=== PATIENT | male | born 1935 | race Caucasian/White ===

== ENCOUNTER 2021-10-28 17:53 | Inpatient (IN) ==
[2021-10-28 19:09] LABS: Basophils # (auto) 0.02 K/uL (0-0.2); Basophils % (auto) 0.2 %; Eosinophils # (auto) 0.22 K/uL (0-0.50); Eosinophils % (auto) 2.2 %; Hematocrit (blood only) 40.3 % (40.1-51.0); Hemoglobin 14.4 g/dl (14.0-18.0); Immature Granulocytes # (auto) 0.04 K/uL (0.00-0.02); Immature Granulocytes % (auto) 0.4 %; Lymphocytes # (auto) 1.32 K/uL (1.2-3.4); Lymphocytes % (auto) 13.3 %; Mean Corpuscular Hemoglobin 32.1 pg (25.0-34.0); Mean Corpuscular Hgb Conc 35.7 g/dL (32.0-36.0); Mean Corpuscular Volume 89.8 fL (80.0-100.0); Monocytes % (auto) 12.1 %; Neutrophils # (auto) 7.12 K/uL (1.4-6.5); Neutrophils % (auto) 71.8 %; Platelet Count 185 K/uL (130-400); RDW Coefficient of Variation 12.2 % (11.5-14.5); RDW Standard Deviation 40.4 fL (36.4-46.3); Red Blood Count 4.49 M/uL (4.63-6.08); White Blood Count 9.92 K/ul (4.8-10.8)
[2021-10-28 19:25] LABS: Alanine Aminotransferase 20 U/L (7-52); Albumin Globulin Ratio 1.8 (0.9-2); Albumin Level 4.4 gm/dl (3.4-5.0); Alkaline Phosphatase 58 U/L (34-104); Anion Gap 8 (3-11); Aspartate Aminotransferase 28 U/L (13-39); BUN Creatinine Ratio 11.9 (10-20); Bilirubin,Total 1.1 mg/dl (0.2-1.0); Blood Urea Nitrogen 20 mg/dl (6-23); Calcium 10.1 mg/dl (8.5-10.1); Carbon Dioxide 26 mmol/L (21-32); Chloride 82 mmol/L (98-107); Est GFR (African American) 42.3 ml/min; Est GFR (Non-African American) 36.5 ml/min; Globulin 2.5 gm/dl (2.5-4.0); Glucose 114 mg/dl (70-99(Fasting)); Potassium 4.5 mmol/L (3.5-5.1); Sodium 116 mmol/L (136-145); Total Protein 6.9 gm/dl (6.0-8.3)
--- NOTE | 2021-10-28 20:10 | Emergency Department Note ---
History of Present Illness General Chief complaint: Abnormal Labs/Diagnostic Testing Stated complaint: DR MITTAL FOR LOW SODIUM Time Seen by Provider: 10/28/21 19:37 History of Present Illness 86-year-old male presents to the ED with a chief complaint of generalized weakness. He states that he has been this way for about a year. The daughter, who presents with the patient, states that he seems to have become progressively weak over the past couple of weeks or so. The patient has a history of constipation and drinks about 8 glasses of water a day. Other than his weakness, he denies any other specific complaints. He was recently started on ranolazine by his yarn man. He has some routine blood work done yesterday that showed hyponatremia. For this reason he was sent to the ED for admission. Home Medications Medication Instructions Recorded Confirmed Type ascorbic acid (vitamin C) 100 mg 100 mg PO DAILY 10/05/21 10/13/21 History tablet aspirin 81 mg tablet,delayed 81 mg PO DAILY 10/05/21 10/13/21 History release atorvastatin 40 mg tablet 40 mg PO DAILY 10/05/21 10/13/21 History hydrochlorothiazide 12.5 mg tablet 12.5 mg PO DAILY 10/05/21 10/13/21 History insulin NPH isoph U-100 human 100 20 unit subcut BID 10/05/21 10/13/21 History unit/mL (3 mL) subcutaneous pen (Novolin N Flexpen) lisinopril 20 mg tablet 20 mg PO BID 10/05/21 10/13/21 History metformin 500 mg tablet 500 mg PO QPM 10/05/21 10/13/21 History multivitamin 1 tab PO DAILY 10/05/21 10/13/21 History nitroglycerin 0.4 mg sublingual 0.4 mg sublingual Q5M PRN 10/05/21 10/13/21 History tablet cranberry fruit PO DAILY 10/13/21 10/13/21 History isosorbide mononitrate 60 mg 30 mg PO DAILY 10/13/21 10/13/21 History tablet,extended release 24 hr metformin 500 mg tablet 500 mg PO QAM 10/13/21 10/13/21 History omega-3 fatty acids PO BID 10/13/21 10/13/21 History ranolazine 500 mg tablet,extended 500 mg PO BID #60 tabs 10/13/21 10/13/21 Rx release,12 hr Past Med/Surg History Medical History Myocardial infarct Surgical History Hx of CABG with left heart cath Family History Father Heart disease Social History Smoking Status: Never smoker Hx Alcohol Use: No Hx Substance Use: No Preferred Language: Macedonian Feels Safe at Home: Yes Review of Systems A total of 10 systems reviewed and were otherwise negative Physical Exam Vital Signs Vital Signs - 24 hr 10/28/21 18:26 Temperature 36 C L Temperature Source Oral Pulse Rate 78 Respiratory Rate 21 Respiratory Effort / Characteristics Non-Labored Respiratory Depth Normal Blood Pressure 167/96 H Blood Pressure Mean 119 Pulse Oximetry 95 Oxygen Delivery Method Room Air Sepsis Recent Fever Within 48 Hours No Sepsis New/Unexplained Change in Mental Status No Sepsis Action Taken by Nursing No Action Required CONSTITUTIONAL/VITAL SIGNS: Reviewed / noted above. GENERAL: Non-toxic in appearance. Generalized weakness. INTEGUMENTARY: Warm, dry, and [place]. HEAD: Normocephalic. EYES: without scleral icterus or trauma. ENT/OROPHARYNX: clear and moist. LYMPHADENOPATHY/NECK: Is supple without lymphadenopathy or meningismus. RESPIRATORY: Clear to auscultation bilaterally. No increased work of breathing. CARDIOVASCULAR: Regular rate and rhythm. GI/ABDOMEN: Soft and nontender. No organomegaly or pulsatile mass. EXTREMITIES: Warm and well perfused. BACK: No CVA tenderness. NEUROLOGICAL: Intact without focal deficits. PSYCHIATRIC: normal affect. MUSCULOSKELETAL: Normally developed with good muscle tone. TRIAGE NURSING DOCUMENTATION REVIEWED. Medical Decision Making Differential Diagnosis Differential includes acute coronary syndrome, myocardial infarction, CVA, TIA, anemia, infection, pneumonia, UTI, pyelonephritis, poor nutrition, dehydration, electrolyte disturbance,hypoglycemia. Medical Records Attestation: I reviewed the patient's medical records. Home Medications Current Medication List: was personally reviewed by me Laboratory Data Attestation: I reviewed the patient's lab results. Result diagrams: 10/28/21 18:52 10/28/21 18:52 Lab Results 10/28/21 10/28/2122 Range/Units 18:52 18:52 18:52 WBC 9.92 (4.8-10.8) K/ul RBC 4.49 L (4.63-6.08) M/uL Hgb 14.4 (14.0-18.0) g/dl Hct 40.3 (40.1-51.0) % MCV 89.8 (80.0-100.0) fL MCH 32.1 (25.0-34.0) pg MCHC 35.7 (32.0-36.0) g/dL RDW Std Deviation 40.4 (36.4-46.3) fL RDW Coeff of Gail 12.2 (11.5-14.5) % Plt Count 185 (130-400) K/uL MPV 10.0 (9.4-12.4) fL Immature Gran % (Auto) 0.4 % Neut % (Auto) 71.8 % Lymph % (Auto) 13.3 % [place] % (Auto) 12.1 % Eos % (Auto) 2.2 % Baso % (Auto) 0.2 % Neut # (Auto) 7.12 H (1.4-6.5) K/uL Lymph # (Auto) 1.32 (1.2-3.4) K/uL [place] # (Auto) 1.20 H (0.24-0.82) K/uL Eos # (Auto) 0.22 (0-0.50) K/uL Baso # (Auto) 0.02 (0-0.2) K/uL Immature Gran # (Auto) 0.04 H (0.00-0.02) K/uL Sodium 116 L* (136-145) mmol/L Potassium 4.5 (3.5-5.1) mmol/L Chloride 82 L (98-107) mmol/L Carbon Dioxide 26 (21-32) mmol/L Anion Gap 8 (3-11) BUN 20 (6-23) mg/dl Creatinine 1.68 H (0.6-1.4) mg/dl Est Cr Clr Drug Dosing Not Reportable Est GFR ( Amer) 42.3 ml/min Est GFR (Non-Af Amer) 36.5 ml/min BUN/Creatinine Ratio 11.9 (10-20) Glucose 114 H (70-99(Fasting)) mg/dl Osmolality (280-300) mOsm/kg Calcium 10.1 (8.5-10.1) mg/dl Total Bilirubin 1.1 H (0.2-1.0) mg/dl AST 28 (13-39) U/L ALT 20 (7-52) U/L Alkaline Phosphatase 58 (34-104) U/L Total Protein 6.9 (6.0-8.3) gm/dl Albumin 4.4 (3.4-5.0) gm/dl Globulin 2.5 (2.5-4.0) gm/dl Albumin/Globulin Ratio 1.8 (0.9-2) TSH 1.154 (0.300-4.500) uIu/ml 10/28/21 Range/Units 18:52 WBC (4.8-10.8) K/ul RBC (4.63-6.08) M/uL Hgb (14.0-18.0) g/dl Hct (40.1-51.0) % MCV (80.0-100.0) fL MCH (25.0-34.0) pg MCHC (32.0-36.0) g/dL RDW Std Deviation (36.4-46.3) fL RDW Coeff of Gail (11.5-14.5) % Plt Count (130-400) K/uL MPV (9.4-12.4) fL Immature Gran % (Auto) % Neut % (Auto) % Lymph % (Auto) % [place]ink[place] % (Auto) % Eos % (Auto) % Baso % (Auto) % Neut # (Auto) (1.4-6.5) K/uL Lymph # (Auto) (1.2-3.4) K/uL [place]ink[place] # (Auto) (0.24-0.82) K/uL Eos # (Auto) (0-0.50) K/uL Baso # (Auto) (0-0.2) K/uL Immature Gran # (Auto) (0.00-0.02) K/uL Sodium (136-145) mmol/L Potassium (3.5-5.1) mmol/L Chloride (98-107) mmol/L Carbon Dioxide (21-32) mmol/L Anion Gap (3-11) BUN (6-23) mg/dl Creatinine (0.6-1.4) mg/dl Est Cr Clr Drug Dosing Est GFR ( Amer) ml/min Est GFR (Non-Af Amer) ml/min BUN/Creatinine Ratio (10-20) Glucose (70-99(Fasting)) mg/dl Osmolality 251 L (280-300) mOsm/kg Calcium (8.5-10.1) mg/dl Total Bilirubin (0.2-1.0) mg/dl AST (13-39) U/L ALT (7-52) U/L Alkaline Phosphatase (34-104) U/L Total Protein (6.0-8.3) gm/dl Albumin (3.4-5.0) gm/dl Globulin (2.5-4.0) gm/dl Albumin/Globulin Ratio (0.9-2) TSH (0.300-4.500) uIu/ml Imaging Data My Impression: Chest x-ray: Per my interpretation shows no acute process. No pneumonia or pneumothorax. ECG Data Attestation: I personally reviewed and interpreted this ECG as follows: Additional Comments: Twelve-lead EKG: Per my interpretation shows a sinus rhythm at a rate of 72 with a first-degree AV block. PVC. Normal QTC. No ST elevation MDM Narrative 86-year-old male presents with generalized weakness. Laboratory studies yesterday showed hyponatremia. Sodium today is 116. Chloride is also low at 82. His BUN is 20 with a creatinine of 1.68. This is near baseline for the patient. Clinically the patient does not appear to be dehydrated. He denies any edema or swelling in his legs. The patient did have blood work about 2 months ago that showed a sodium of 137 at that time.. Chest x-ray did not show acute process. The patient will be seen by the hospitalist for further evaluation and care Impression & Plan Acute hyponatremia Discharge Plan Visit Data Chief Complaint: Abnormal Labs/Diagnostic Testing Stated Complaint: DR MITTAL FOR LOW SODIUM ED Provider: Jaret Lind Discharge Problem: Acute hyponatremia Patient Disposition: Being Evaluated by Hospitalist Forms Stand Alone Forms: My [facility] Prescriptions Prescriptions: No Action omega-3 fatty acids PO BID cranberry fruit PO DAILY ranolazine 500 mg tablet extended release 12 hr 500 mg PO BID Qty: 60 5RF atorvastatin 40 mg tablet 40 mg PO DAILY Novolin N Flexpen 100 unit/mL (3 mL) insulin pen 20 unit subcut BID lisinopril 20 mg tablet 20 mg PO BID aspirin 81 mg tablet,delayed release (DR/EC) 81 mg PO DAILY metformin 500 mg tablet 500 mg PO QPM multivitamin Tablet 1 tab PO DAILY ascorbic acid (vitamin C) 100 mg tablet 100 mg PO DAILY hydrochlorothiazide 12.5 mg tablet 12.5 mg PO DAILY nitroglycerin 0.4 mg tablet, sublingual 0.4 mg sublingual Q5M PRN Rx Instructions: do not exceed 3 doses per episode isosorbide mononitrate 60 mg tablet extended release 24 hr 30 mg PO DAILY metformin 500 mg tablet 500 mg PO QAM Referrals Referrals: Aramis Medel D.O. [Primary Care Provider] -
--- NOTE | 2021-10-28 20:39 | History & Physical Report ---
Date of Service October 28, 2021 Assessment & Plan (1) Acute hyponatremia: Plan: Acute severe euvolemic hypotonic hyponatremia - 86yo male with history of CAD, HTN, HLP and DM presenting with two weeks of progressive weakness, fatigue and functional decline. Some cognitive impairment and imbalance noted by daughter. No seizure. Found to be acutely hyponatremic with Ty=615. Last laboratory value on 09/02/21 with Ur=276. Patient appears euvolemic on exam. Serum osmolality is low at 251. Urine osmolality and urine Na pending. Patient is on HCTZ which can be contributing to hyponatremia. He was recently started on Ranolazine which does not contribute to hyponatremia. ?SIADH -Admit to PCU -Awaiting urine osmolality and Na -Hold HCTZ -Administer 3% NSS x 50mL bolus x 1. Rebolus if needed -Monitor Na q 4 hours - goal to increase serum Na by 4-6 mEq/L daily -Free H2O restriction 1200mL/day -PT/OT evaluation - suspect improved function after electrolyte derangement is correctef (2) CAD (coronary artery disease): Plan: Patient with CAD s/p CABG x 4v in 2000. No chest pain presently. He follows with Cardiology. Recently started on Ranexa 500mg po BID for persistent exertional symptoms - plan to discontinue Isosorbide in the future if tolerated. -Continue ASA 81mg po daily -Continue Atorvastatin 40mg po daily -Continue Isosorbide mononitrate -Continue Lisinopril -Continue Ranolazine (3) Type 2 diabetes mellitus: Plan: Chronic. Blood sugar well controlled now at 114. Patient does report he has occasional low blood sugars. He is on Metformin as well as Novolog -Check HgbA1C in AM -ISS -Lantus 5u BID -Goal blood sugar 100 - 140 (4) Hypertension: Plan: Blood pressure mildly elevated in the ER at 150/85 -Hold HCTZ -Continue Lisinopril, Isosorbide (5) Hypercholesterolemia: Plan: F/E/N - 3% saline bolus as needed, monitor Na q 4 hours, check Mg and PO4 x 1 and replete if needed, AHA/CC diet as tolerated Ppx - Lovenox Code - DNR/DNI Dipso - Admit to PCU POC - Gee - Asya - [phone] History of Present Illness Chief Complaint: weakness Primary Care Provider: Aramis Medel Jun Alvarez is a pleasant 86yo male with history of HTN, HLP, DM and CAD s/p CABG x 4v (2000 in [place]. HERNANDEZ to LAD, SVG to PDA, SVG to OM1 and SVG to diagonal). Patient has been evaluated for ongoing fatigue as well as exertional dyspnea. He was last seen by Cardiology with these complaints on 10/13/21 and was started on Ranexa 500mg po BID as anti-anginal. Overall he has had progressive generalized weakness and fatigue over the last few months. However, his symptoms have rapidly progressed over the last 2 wee ks. His daughter has also noted some cognitive slowing as well as imbalance. No seizures. Patient had routine bloodwork performed today in preparation for an appointment with his PCP. He was found to be severely hyponatremic with Yg=680. He was notified of his results and told to come to the ER for additional workup and treatment. Patient is with his daughter. Overall states he is doing well. He takes his medication as prescribed. He has had some constipation lately so has been taking Metamucil and MOM as well as having a Fleets enema. He reports that he has poor appetite overall. He drinks 6-8 glasses of water daily. Takes HCTZ as well. No additional complaints at this time. Allergies Allergy/AdvReac Type Severity Reaction Status Date / Time No Known Allergies Allergy Unverified 10/28/21 22:46 Home Medications Medication Instructions Recorded Confirmed Type ascorbic acid (vitamin C) 100 mg 100 mg PO DAILY 10/05/21 10/28/21 History tablet aspirin 81 mg tablet,delayed 81 mg PO DAILY 10/05/21 10/28/21 History release atorvastatin 40 mg tablet 40 mg PO DAILY 10/05/21 10/28/21 History hydrochlorothiazide 12.5 mg tablet 12.5 mg PO DAILY 10/05/21 10/28/21 History insulin NPH isoph U-100 human 100 20 unit subcut BID 10/05/21 10/28/21 History unit/mL (3 mL) subcutaneous pen (Novolin N Flexpen) lisinopril 20 mg tablet 20 mg PO BID 10/05/21 10/28/21 History multivitamin 1 tab PO DAILY 10/05/21 10/28/21 History nitroglycerin 0.4 mg sublingual 0.4 mg sublingual Q5M PRN Chest 10/05/21 10/28/21 History tablet Pain isosorbide mononitrate 60 mg 30 mg PO DAILY 10/13/21 10/28/21 History tablet,extended release 24 hr ranolazine 500 mg tablet,extended 500 mg PO BID #60 tabs 10/13/21 10/28/21 Rx release,12 hr Juice Plus Tabs 6 tab PO QAM 10/28/21 10/28/21 History cholecalciferol (vitamin D3) 125 125 mcg PO DAILY 10/28/21 10/28/21 History mcg (5,000 unit) tablet (Vitamin D3) cranberry 400 mg capsule 400 mg PO DAILY 10/28/21 10/28/21 History d-mannose 500 mg capsule 1,000 mg PO DAILY 10/28/21 10/28/21 History lactobacillus combination no.4 3 0 mmu cells PO DAILY 10/28/21 10/28/21 History billion cell capsule (Probiotic) metformin 1,000 mg tablet 500 mg PO BID 10/28/21 10/28/21 History omega-3 fatty acids 1,000 mg 2,000 mg PO DAILY 10/28/21 10/28/21 History capsule Past Med/Surg History Medical History (Updated 10/28/21 @ 23:38 by Silvia Kirby DO) Hypercholesterolemia Hypertension Myocardial infarct Type 2 diabetes mellitus Surgical History Hx of CABG with left heart cath Family History Father Heart disease Social History Smoking Status: Never smoker Hx Alcohol Use: No Hx Substance Use: No Preferred Language: Sinhala Feels Safe at Home: Yes Review of Systems Review of Systems: All systems reviewed & are unremarkable except as noted in HPI & below Physical Exam Physical Exam: General: patient resting comfortably, NAD, non-toxic in appearance, AA&O x 4 Skin: warm, dry, intact, no rashes or lesions HEENT: NC/AT, PERRL, EOMI, anicteric sclera, conjunctiva without injection, external ear normal to inspection and nontender, nares patent, moist mucus membranes, dentition intact, no oropharyngeal lesions, neck supple, trachea midline, no LAD, no thyromegaly, no JVD Heart: +S1/S2, regular, no m/r/g Lungs: equal air entry bilaterally, no rales/rhonchi/wheezes Abd: +BS, soft, NT/ND, no masses/organomegaly/ascites Ext: warm, 2+ pulses in UE/LE bilaterally, no clubbing/cyanosis or edema Neuro: nonfocal, patient AA&O x 4, speech intact, no facial droop, moving all extremities on command with equal strength 5/5 Results & Data Results & Data ([facility]) Vital Signs (Past 12 Hours) Vital Signs Temp Pulse Resp BP Pulse Ox O2 Del Method 10/28/21 18:26 36 C L 78 21 167/96 H 95 Room Air Laboratory Results Laboratory Results WBC 9.92 K/ul (4.8-10.8) 10/28/21 18:52 RBC 4.49 M/uL (4.63-6.08) L 10/28/21 18:52 Hgb 14.4 g/dl (14.0-18.0) 10/28/21 18:52 Hct 40.3 % (40.1-51.0) 10/28/21 18:52 MCV 89.8 fL (80.0-100.0) 10/28/21 18:52 MCH 32.1 pg (25.0-34.0) 10/28/21 18:52 MCHC 35.7 g/dL (32.0-36.0) 10/28/21 18:52 RDW Std Deviation 40.4 fL (36.4-46.3) 10/28/21 18:52 RDW Coeff of Gail 12.2 % (11.5-14.5) 10/28/21 18:52 Plt Count 185 K/uL (130-400) 10/28/21 18:52 MPV 10.0 fL (9.4-12.4) 10/28/21 18:52 Immature Gran % (Auto) 0.4 % 10/28/21 18:52 Neut % (Auto) 71.8 % 10/28/21 18:52 Lymph % (Auto) 13.3 % 10/28/21 18:52 [place] % (Auto) 12.1 % 10/28/21 18:52 Eos % (Auto) 2.2 % 10/28/21 18:52 Baso % (Auto) 0.2 % 10/28/21 18:52 Neut # (Auto) 7.12 K/uL (1.4-6.5) H 10/28/21 18:52 Lymph # (Auto) 1.32 K/uL (1.2-3.4) 10/28/21 18:52 [place] # (Auto) 1.20 K/uL (0.24-0.82) H 10/28/21 18:52 Eos # (Auto) 0.22 K/uL (0-0.50) 10/28/21 18:52 Baso # (Auto) 0.02 K/uL (0-0.2) 10/28/21 18:52 Immature Gran # (Auto) 0.04 K/uL (0.00-0.02) H 10/28/21 18:52 Sodium 116 mmol/L (136-145) L* 10/28/21 18:52 Potassium 4.5 mmol/L (3.5-5.1) 10/28/21 18:52 Chloride 82 mmol/L (98-107) L 10/28/21 18:52 Carbon Dioxide 26 mmol/L (21-32) 10/28/21 18:52 Anion Gap 8 (3-11) 10/28/21 18:52 BUN 20 mg/dl (6-23) 10/28/21 18:52 Creatinine 1.68 mg/dl (0.6-1.4) H 10/28/21 18:52 Est Cr Clr Drug Dosing Not Reportable 10/28/21 18:52 Est GFR ( Amer) 42.3 ml/min 10/28/21 18:52 Est GFR (Non-Af Amer) 36.5 ml/min 10/28/21 18:52 BUN/Creatinine Ratio 11.9 (10-20) 10/28/21 18:52 Glucose 114 mg/dl (70-99(Fasting)) H 10/28/21 18:52 Osmolality 251 mOsm/kg (280-300) L 10/28/21 18:52 Calcium 10.1 mg/dl (8.5-10.1) 10/28/21 18:52 Total Bilirubin 1.1 mg/dl (0.2-1.0) H 10/28/21 18:52 AST 28 U/L (13-39) 10/28/21 18:52 ALT 20 U/L (7-52) 10/28/21 18:52 Alkaline Phosphatase 58 U/L (34-104) 10/28/21 18:52 Total Protein 6.9 gm/dl (6.0-8.3) 10/28/21 18:52 Albumin 4.4 gm/dl (3.4-5.0) 10/28/21 18:52 Globulin 2.5 gm/dl (2.5-4.0) 10/28/21 18:52 Albumin/Globulin Ratio 1.8 (0.9-2) 10/28/21 18:52 TSH 1.154 uIu/ml (0.300-4.500) 10/28/21 18:52 Urine Color Yellow 10/28/21 21:37 Urine Appearance Clear (Clear) 10/28/21 21:37 Urine pH 6.0 (4.5-7.5) 10/28/21 21:37 Ur Specific [place] 1.009 (1.000-1.030) 10/28/21 21:37 Urine Protein 1+ (Negative) H 10/28/21 21:37 Urine Glucose (UA) Negative (Negative) 10/28/21 21:37 Urine Ketones Trace (Negative) H 10/28/21 21:37 Urine Blood Negative (Negative) 10/28/21 21:37 Urine Nitrite Negative (Negative) 10/28/21 21:37 Urine Bilirubin Negative (Negative) 10/28/21 21:37 Urine Urobilinogen Negative (Negative) 10/28/21 21:37 Ur Leukocyte Esterase Negative (Negative) 10/28/21 21:37 Urine WBC (Auto) 1-5 /hpf (0-5) 10/28/21 21:37 Urine RBC (Auto) 0-4 /hpf (0-4) 10/28/21 21:37 U Hyaline Cast (Auto) 1-5 /lpf (0-5) 10/28/21 21:37 U Epithel Cells (Auto) 5-10 /lpf (0-5) H 10/28/21 21:37 Urine Bacteria (Auto) Negative (Negative) 10/28/21 21:37 Impressions Chest X-Ray 10/28/21 19:57 SINGLE VIEW CHEST CLINICAL HISTORY: Generalized weakness FINDINGS: An AP, portable, upright chest radiograph is obtained. No prior studies are available for comparison at the time of dictation. The patient is status post midline sternotomy. The heart is mildly enlarged noting atherosclerotic calcification of the thoracic aorta. The pulmonary vasculature is noncongested. Nonspecific interstitial thickening is likely chronic. There is bibasilar scarring/atelectasis. No airspace consolidation or large pleural effusion is identified. No pneumothorax is seen. Skeletal structures are osteopenic. The bony thorax is grossly intact. IMPRESSION: Mild cardiomegaly with no active disease in the chest. ACT 112: Negative or not required by law. Electronically signed by: Brian Sanchez M.D. 10/28/2021 8:51 PM PG Care Time/CCT Total # of Minutes Spent Total Time Spent with Patient: Total time spent is greater than 50% in coordination of care (as documented) at patient's floor/unit and/or counseling patient: Coding Level of Care Code INT OBSERVATION CARE 70M LVL 3 Diagnoses Acute hyponatremia E87.1 CAD (coronary artery disease) I25.10 Type 2 diabetes mellitus E11.9 Hypertension I10 Hypercholesterolemia E78.00
--- NOTE | 2021-10-28 20:52 | XRay Report ---
SINGLE VIEW CHEST CLINICAL HISTORY: Generalized weakness FINDINGS: An AP, portable, upright chest radiograph is obtained. No prior studies are available for c omparison at the time of dictation. The patient is status post midline sternotomy. The heart is mildl y enlarged noting atherosclerotic calcification of the thoracic aorta. The pulmonary vasculature is n oncongested. Nonspecific interstitial thickening is likely chronic. There is bibasilar scarring/atele ctasis. No airspace consolidation or large pleural effusion is identified. No pneumothorax is seen. S keletal structures are osteopenic. The bony thorax is grossly intact. IMPRESSION: Mild cardiomegaly with no active disease in the chest. ACT 112: Negative or not required by law. Electronically signed by: Brian Sanchez M.D. 10/28/2021 8:51 PM
[2021-10-28 21:57] LABS: Appearance Urine Clear (Clear); Bacteria Urine Automated Negative (Negative); Bilirubin Urine Negative (Negative); Blood Urine Negative (Negative); Color Urine Yellow; Glucose Urine UA Negative (Negative); Ketones Urine Trace (Negative); Leukocyte Esterase Urine Negative (Negative); Nitrite Urine Negative (Negative); Protein Urine 1+ (Negative); RBC Urine Automated 0-4 /hpf (0-4); Specific Gravity Urine 1.009 (1.000-1.030); Urobilinogen Urine Negative (Negative)
[2021-10-29] MEDS ORDERED: GLUCOSE 10 TAB/TUBE PO PRN (02:31)
[2021-10-29] MEDS ORDERED: CARBOHYDRATES FOR HYPOGLYCEMIA PO PRN (02:31)
[2021-10-29] MEDS ORDERED: GLUCOSE 40% GEL 15 GM TUBE PO PRN (02:31)
[2021-10-29] MEDS ORDERED: ACETAMINOPHEN 325 MG TAB PO PRN (02:31)
[2021-10-29] MEDS ORDERED: GLUCAGON FOR INJ 1 MG VIAL SQ PRN (02:31)
[2021-10-29] MEDS ORDERED: ONDANSETRON INJ 2 MG/ML 2 ML VIAL IV PRN (02:31)
[2021-10-29] MEDS ORDERED: DEXTROSE 50% 50 ML SYRINGE IV PRN (02:31)
[2021-10-29] MEDS ORDERED: STAT IV STA (02:31)
[2021-10-29] MEDS ORDERED: SODIUM CHLORIDE 3 % 50 ML IV ONE (02:45)
[2021-10-29 04:02] LABS: Basophils # (auto) 0.02 K/uL (0-0.2); Basophils % (auto) 0.2 %; Eosinophils # (auto) 0.18 K/uL (0-0.50); Eosinophils % (auto) 1.6 %; Hematocrit (blood only) 40.8 % (40.1-51.0); Hemoglobin 14.7 g/dl (14.0-18.0); Immature Granulocytes # (auto) 0.09 K/uL (0.00-0.02); Immature Granulocytes % (auto) 0.8 %; Lymphocytes # (auto) 1.11 K/uL (1.2-3.4); Mean Corpuscular Hemoglobin 32.2 pg (25.0-34.0); Mean Corpuscular Volume 89.3 fL (80.0-100.0); Mean Platelet Volume 10.1 fL (9.4-12.4); Monocytes # (auto) 1.31 K/uL (0.24-0.82); Monocytes % (auto) 11.8 %; Neutrophils # (auto) 8.35 K/uL (1.4-6.5); Neutrophils % (auto) 75.6 %; Platelet Count 186 K/uL (130-400); RDW Coefficient of Variation 12.3 % (11.5-14.5); Red Blood Count 4.57 M/uL (4.63-6.08); White Blood Count 11.06 K/ul (4.8-10.8)
[2021-10-29 04:21] LABS: Albumin Level 4.3 gm/dl (3.4-5.0); BUN Creatinine Ratio 12.7 (10-20); Bilirubin Direct 0.2 mg/dl (0-0.2); Bilirubin,Total 1.3 mg/dl (0.2-1.0); Calcium 10.3 mg/dl (8.5-10.1); Est GFR (African American) 48.5 ml/min; Est GFR (Non-African American) 41.9 ml/min; Magnesium 1.5 mg/dl (1.7-2.4); Phosphorus 2.7 mg/dl (2.5-4.9); Potassium 4.4 mmol/L (3.5-5.1); Total Protein 6.8 gm/dl (6.0-8.3)
[2021-10-29 07:35] LABS: Estimated Average Glucose 160 mg/dl; Hemoglobin A1C 7.2 % (4.5-5.6)
--- NOTE | 2021-10-29 08:07 | Electrocardiogram Report ---
Test Reason : Blood Pressure : / mmHG Vent. Rate : 072 BPM Atrial Rate : 072 BPM P-R Int : 376 ms QRS Dur : 100 ms QT Int : 396 ms P-R-T Axes : 058 -40 082 degrees QTc Int : 433 ms Sinus rhythm with 1st degree A-V block with occasional Premature ventricular complexes Left axis deviation Abnormal ECG No previous ECGs available Confirmed by Raheel Farley ([id number]) on 10/29/2021 8:07:38 AM Referred By: Aramis Medel Confirmed By:Raheel Farley
--- NOTE | 2021-10-29 08:24 | Hospitalist Progress Note ---
Date of Service October 29, 2021 Assessment & Plan (1) Acute hyponatremia: Plan: Acute severe euvolemic hypotonic hyponatremia - 86yo male with history of CAD, HTN, HLP and DM presenting with two weeks of progressive weakness, fatigue and functional decline. cognitive impairment and imbalance noted by daughter. No seizure. Found to be acutely hyponatremic with Vx=184. Last laboratory value on 09/02/21 with Jc=037. Serum osmolality is low at 251. Patient is on HCTZ which can be contributing to hyponatremia. He was recently started on Ranolazine which does not contribute to hyponatremia. ?SIADH -Administered 3% NSS bolus x 1. Pt is putting out a dilute urine so seems to be attempt at auto correcting, will hold on additional hypertonic saline at this time -Free H2O restriction 1200mL/day -PT/OT evaluation - suspect improved function after electrolyte derangement is correctef (2) CAD (coronary artery disease): Plan: Patient with CAD s/p CABG x 4v in 2000. No chest pain presently. He follows with Cardiology. Recently started on Ranexa 500mg po BID for persistent exertional symptoms - -Continue ASA 81mg po daily -Continue Atorvastatin 40mg po daily -Continue Isosorbide mononitrate -Continue Lisinopril -Continue Ranolazine (3) Type 2 diabetes mellitus: Plan: Chronic. Blood sugar well controlled now at 114. Patient does report he has occasional low blood sugars. He is on Metformin as well as Novolog -Check HgbA1C in AM -ISS -Lantus 5u BID -Goal blood sugar 100 - 140 (4) Hypertension: Plan: Blood pressure mildly elevated in the ER at 150/85 -Hold HCTZ -Continue Lisinopril, Isosorbide (5) Hypercholesterolemia: Plan: F/E/N - 3% saline bolus as needed, monitor Na q 4 hours, check Mg and PO4 x 1 and replete if needed, AHA/CC diet as tolerated Ppx - Lovenox Code - DNR/DNI Dipso - Admit to PCU POC - Gee Sky - [phone] Admission and Anticipated Discharge Date Admission Date: October 28, 2021 Subjective pt was pleasant and stable with intact mentation this am, sodium did come up a bit, but not dramatically, was given hypertonic saline on admission Review of Systems Review of Systems: Mild distress and fatigue no headache, no visual changes no speech or swallowing issues no chest pain, pressure or palpitations no shortness of breath, cough or wheezes no abdominal pain, nausea or vomiting, diarrhea or constipation no dysuria, hematuria or frequency no focal joint pain or swelling no back pain, CVA tenderness or radicular pain no bruising, bleeding or rashes no focal signs of weakness or numbness or altered sensation no complaints of anxiety or depression.. Physical Exam Physical Exam: The patient appeared well nourished and normally developed. Vital signs as documented. Head exam is normocephalic atraumatic Neck is without JVD, thyromegaly, or carotid bruits. Lungs are clear to auscultation, no focal loss of breath sounds Cardiac exam, Rhythm is regular.. No murmurs, rubs or gallops. Abdominal exam reveals normal bowel sounds, soft non tender, no masses Extremities are nonedematous and both pedal pulses are present Neurologic exam is alert and oriented, no focal loss of strength or sensation Skin is without bruises or rashes Psychologically is without concerns for anxiety or depression.. Results & Data Results & Data ([facility]) Vital Signs (Past 12 Hours) Vital Signs Temp Pulse Pulse Resp BP BP Pulse Ox 10/29/21 07:20 97.7 F 80 20 147/77 H 93 10/29/21 03:32 80 10/29/21 02:31 97.5 F L 75 20 122/81 97 10/29/21 01:00 157/86 H 94 10/29/21 00:00 69 16 158/92 H 98 10/28/21 23:28 65 15 150/85 H 95 O2 Del Method 10/29/21 07:20 Room Air 10/29/21 03:32 10/29/21 02:31 Room Air 10/29/21 01:00 Room Air 10/29/21 00:00 Room Air 10/28/21 23:28 Room Air PG Care Time/CCT Total # of Minutes Spent Total Time Spent with Patient: Total time spent is greater than 50% in coordination of care (as documented) at patient's floor/unit and/or counseling patient: Coding Level of Care Code 12617 Subseq Hosp Care Lvl 3 Diagnoses Acute hyponatremia E87.1 CAD (coronary artery disease) I25.10 Type 2 diabetes mellitus E11.9 Hypertension I10 Hypercholesterolemia E78.00
[2021-10-29] MEDS ORDERED: ATORVASTATIN 40 MG TAB PO SCH (09:00)
[2021-10-29] MEDS ORDERED: lisinopril 20 MG TAB PO SCH (09:00)
[2021-10-29] MEDS: INSULIN ASPART PER UNIT SC SCH ×4 (09:01→20:47)
[2021-10-29] MEDS: ASPIRIN 81 MG ECTAB PO SCH (09:11)
[2021-10-29] MEDS: ENOXAPARIN INJ 40 MG/0.4 ML SYR SQ SCH (09:11)
[2021-10-29] MEDS: ISOSORBIDE MONO EXTENDED REL 30 MG TABCR PO SCH (09:13)
[2021-10-29] MEDS: RANOLAZINE 500 MG ER TAB PO SCH ×2 (09:13→20:10)
[2021-10-29] MEDS: MAGNESIUM SULFATE / D5W 1 GM/100 ML BAG IV SCH ×2 (09:17→11:59)
[2021-10-29] MEDS: LANTUS PER UNIT CHARGE SQ SCH ×2 (09:33→20:47)
[2021-10-29 13:35] LABS: BUN Creatinine Ratio 14.3 (10-20); Calcium 9.9 mg/dl (8.5-10.1); Creatinine Clr Calc Pharmacy 33.5 ml/min; Est GFR (African American) 44.5 ml/min; Est GFR (Non-African American) 38.4 ml/min; Potassium 4.2 mmol/L (3.5-5.1)
[2021-10-30] MEDS ORDERED: COUGH DROP (SUGAR FREE) LOZ 24 LOZ/1 BOX BUCCAL PRN (03:34)
[2021-10-30] MEDS ORDERED: COUGH DROP (SUGAR FREE) LOZ 24 LOZ/1 BOX BUCCAL ONE (03:37)
[2021-10-30 06:45] LABS: BUN Creatinine Ratio 16.4 (10-20); Calcium 9.7 mg/dl (8.5-10.1); Creatinine Clr Calc Pharmacy 30.5 ml/min; Est GFR (African American) 39.7 ml/min; Est GFR (Non-African American) 34.3 ml/min; Potassium 3.8 mmol/L (3.5-5.1)
[2021-10-30] MEDS ORDERED: STAT IV STA ×3 (07:25→22:35)
[2021-10-30] MEDS ORDERED: SODIUM CHLORIDE 3 % 50 ML IV ONE ×2 (07:25→22:35)
[2021-10-30] MEDS: ISOSORBIDE MONO EXTENDED REL 30 MG TABCR PO SCH (09:00)
[2021-10-30] MEDS: RANOLAZINE 500 MG ER TAB PO SCH ×2 (09:00→20:45)
[2021-10-30] MEDS: ASPIRIN 81 MG ECTAB PO SCH (09:00)
[2021-10-30] MEDS ORDERED: lisinopril 10 MG TAB PO SCH (09:00)
[2021-10-30] MEDS: ENOXAPARIN INJ 40 MG/0.4 ML SYR SQ SCH (09:01)
[2021-10-30] MEDS: INSULIN ASPART PER UNIT SC SCH ×4 (09:06→20:46)
[2021-10-30] MEDS: LANTUS PER UNIT CHARGE SQ SCH ×2 (09:07→20:45)
[2021-10-30 13:41] LABS: BUN Creatinine Ratio 16.4 (10-20); Calcium 9.5 mg/dl (8.5-10.1); Creatinine Clr Calc Pharmacy 28.6 ml/min; Est GFR (African American) 36.7 ml/min; Est GFR (Non-African American) 31.6 ml/min; Potassium 4.1 mmol/L (3.5-5.1)
[2021-10-30] MEDS ORDERED: SODIUM CHLORIDE 3 % 100 ML IV ONE (13:47)
--- NOTE | 2021-10-30 18:28 | Hospitalist Progress Note ---
Date of Service October 30, 2021 Assessment & Plan (1) Acute hyponatremia: Plan: Acute severe euvolemic hypotonic hyponatremia - 86yo male with history of CAD, HTN, HLP and DM presenting with two weeks of progressive weakness, fatigue and functional decline. cognitive impairment and imbalance noted by daughter. No seizure. Found to be acutely hyponatremic with Kd=730. Last laboratory value on 09/02/21 with Vf=150. Serum osmolality is low at 251. Patient is on HCTZ which can be contributing to hyponatremia. 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 Pt is putting out a dilute urine so seems to be attempt at auto correcting, will hold on additional hypertonic saline at this time -Free H2O restriction 1200mL/day -PT/OT evaluation - suspect improved function after electrolyte derangement is corrected (2) CAD (coronary artery disease): Plan: Patient with CAD s/p CABG x 4v in 2000. No chest pain presently. He follows with Cardiology. Recently started on Ranexa 500mg po BID for persistent exertional symptoms - -Continue ASA 81mg po daily -Continue Atorvastatin 40mg po daily -Continue Isosorbide mononitrate -Continue Lisinopril -Continue Ranolazine (3) Type 2 diabetes mellitus: Plan: Chronic. Blood sugar well controlled now at 114. Patient does report he has occasional low blood sugars. He is on Metformin as well as Novolog -Check HgbA1C in AM -ISS -Lantus 5u BID -Goal blood sugar 100 - 140 (4) Hypertension: Plan: Blood pressure mildly elevated in the ER at 150/85 -Hold HCTZ lisinopril -Continue, Isosorbide (5) Hypercholesterolemia: Plan: F/E/N - 3% saline bolus as needed, monitor Na q 4 hours, check Mg and PO4 x 1 and replete if needed, AHA/CC diet as tolerated Ppx - Lovenox Code - DNR/DNI Dipso - Admit to PCU POC - Gee Sky - [phone] Admission and Anticipated Discharge Date Admission Date: October 28, 2021 Subjective pt was pleasant and stable with intact mentation sodium did not dramaticallyrise , was given hypertonic saline 10/30 x 2 Review of Systems Review of Systems: Mild distress and fatigue no headache, no visual changes no speech or swallowing issues no chest pain, pressure or palpitations no shortness of breath, cough or wheezes no abdominal pain, nausea or vomiting, diarrhea or constipation no dysuria, hematuria or frequency no focal joint pain or swelling no back pain, CVA tenderness or radicular pain no bruising, bleeding or rashes no focal signs of weakness or numbness or altered sensation no complaints of anxiety or depression.. Physical Exam Physical Exam: The patient appeared well nourished and normally developed. Vital signs as documented. Head exam is normocephalic atraumatic Neck is without JVD, thyromegaly, or carotid bruits. Lungs are clear to auscultation, no focal loss of breath sounds Cardiac exam, Rhythm is regular.. No murmurs, rubs or gallops. Abdominal exam reveals normal bowel sounds, soft non tender, no masses Extremities are nonedematous and both pedal pulses are present Neurologic exam is alert and oriented, no focal loss of strength or sensation Skin is without bruises or rashes Psychologically is without concerns for anxiety or depression.. Results & Data Results & Data ([facility]) Vital Signs (Past 12 Hours) Vital Signs Temp Pulse Pulse Resp BP Pulse Ox 10/30/21 16:24 97.7 F 70 18 99/59 L 96 10/30/21 14:59 78 10/30/21 12:00 97.9 F 83 18 100/68 96 10/30/21 08:00 98.1 F 74 20 121/60 97 10/30/21 07:15 60 PG Care Time/CCT Total # of Minutes Spent Total Time Spent with Patient: Total time spent is greater than 50% in coordination of care (as documented) at patient's floor/unit and/or counseling patient: Coding Level of Care Code 37079 Subseq Hosp Care Lvl 2 Diagnoses Acute hyponatremia E87.1 CAD (coronary artery disease) I25.10 Type 2 diabetes mellitus E11.9 Hypertension I10 Hypercholesterolemia E78.00
[2021-10-30 21:47] LABS: BUN Creatinine Ratio 16.6 (10-20); Calcium 9.5 mg/dl (8.5-10.1); Creatinine Clr Calc Pharmacy 28.9 ml/min; Est GFR (African American) 37.2 ml/min; Est GFR (Non-African American) 32.1 ml/min; Potassium 4.5 mmol/L (3.5-5.1)
[2021-10-31 03:30] LABS: BUN Creatinine Ratio 16.5 (10-20); Calcium 9.5 mg/dl (8.5-10.1); Creatinine Clr Calc Pharmacy 31.8 ml/min; Est GFR (African American) 41.7 ml/min; Potassium 3.8 mmol/L (3.5-5.1)
[2021-10-31 06:49] LABS: BUN Creatinine Ratio 16.4 (10-20); Calcium 9.6 mg/dl (8.5-10.1); Creatinine Clr Calc Pharmacy 32.7 ml/min; Est GFR (African American) 43.2 ml/min; Est GFR (Non-African American) 37.3 ml/min; Potassium 4.3 mmol/L (3.5-5.1)
[2021-10-31] MEDS ORDERED: STAT IV STA ×4 (07:19→19:41)
[2021-10-31] MEDS ORDERED: SODIUM CHLORIDE 3 % 100 ML IV ONE ×3 (07:19→20:00)
[2021-10-31] MEDS: INSULIN ASPART PER UNIT SC SCH ×4 (07:58→20:10)
[2021-10-31] MEDS: LANTUS PER UNIT CHARGE SQ SCH ×2 (08:06→20:22)
[2021-10-31] MEDS: RANOLAZINE 500 MG ER TAB PO SCH ×2 (08:10→20:24)
[2021-10-31] MEDS: ENOXAPARIN INJ 40 MG/0.4 ML SYR SQ SCH (08:10)
[2021-10-31] MEDS: ISOSORBIDE MONO EXTENDED REL 30 MG TABCR PO SCH (08:10)
[2021-10-31] MEDS: ASPIRIN 81 MG ECTAB PO SCH (08:10)
[2021-10-31] MEDS ORDERED: SODIUM CHLORIDE 1 GM TABLET PO SCH (09:00)
--- NOTE | 2021-10-31 12:33 | Nephrology Consultation ---
Date of Consultation October 31, 2021 Assessment & Plan (1) Hyponatremia: Chronic, mild symptoms. Relatively euvolemic to slightly hypovolemic on exam. Urine osmolality 250 on admission. Repeat assessment pending. HCTZ has been held. I suspect the medication was largely contributing. I cannot exclude potential underlying SIADH. Thankfully, no lesions noted on CXR. Additional PO and IV saline was provided this AM (1 gm PO and 100 ml of 3% IV). Repeat sodium pending. Repeat urine osmolality is also pending. Hopefully, we will be able ot correct reasonably with additional sodium therapy. I would avoid vaptans for now given no signs of hypervolemia. Maintain free water restriction 1.2 L pending improvement in serum sodium. Goals of care discussed with Mr. Barahona and his son. TSH normal. (2) Hypertension: HCTZ discontinued. I would avoid use of thiazides in the future and favor loop diuretic use as needed. BP thankfully has been acceptable. (3) CAD (coronary artery disease): No active symptoms. I do not think ranolazine is associated with the dysnatremia, the medication is not known to be associated with ADH. History of Present Illness Reason for Consultation: Hyponatremia Requesting Physician: Jerzy Aviles MD Attending Physician: Jerzy Aviles MD History of Present Illness Mr. Jun Alvarez is an 86 year-old male with coronary artery disease, hypertension, hyperlipidemia, CKD, and diabetes mellitus who was admitted to [facility] with hyponatremia. He presented to the hospital with outpatient labs demonstrating hyponatremia. Serum sodium 116 mmol/L on admission. No prior history of dysnatremia. TSH 1.15. U osmolality 251. He was found to be euvolemic on presentation. Mr. Barahona presented with ~2 weeks of progressive weakness, fatigue, decreased functional status. He also noticed recent changes in his short term memory. He was seen and evaluated this morning with his son at the bedside. I discussed the plan of care in the patient's room with Dr. Aviles. The patient's son describes his father as very sharp and good with numbers but recently slower with recall. Mr. Barahona experienced a fall at home when walking to the bathroom on Monday evening. Thankfully, he did not sustain any notable injuries. He did not hit his head. He was able to slide on the floor to the bed where he was able to pull himself to standing from his knees. He denies lightheadedness, dizziness, syncope or presyncope. No other recent events. Appetite has been good and the patient denies any notable GI symptoms such as diarrhea. He has not had fluid retention or edema. A couple of months ago, he had been started on HCTZ. Serum sodium in August was 137 mmol/L. Creatinine is stable at baseline 1.6 mg/dL. Yesterday, 3% saline x 200 ml was provided serum sodium this AM 120 mmol/L. During recent follow up with Dr. Ley in the cardiology clinic, ranolazine had been prescribed. Allergies Allergy/AdvReac Type Severity Reaction Status Date / Time No Known Allergies Allergy Unverified 10/28/21 22:46 Home Medications Medication Instructions Recorded Confirmed Type ascorbic acid (vitamin C) 100 mg 100 mg PO DAILY 10/05/21 10/28/21 History tablet aspirin 81 mg tablet,delayed 81 mg PO DAILY 10/05/21 10/28/21 History release atorvastatin 40 mg tablet 40 mg PO DAILY 10/05/21 10/28/21 History hydrochlorothiazide 12.5 mg tablet 12.5 mg PO DAILY 10/05/21 10/28/21 History insulin NPH isoph U-100 human 100 20 unit subcut BID 10/05/21 10/28/21 History unit/mL (3 mL) subcutaneous pen (Novolin N Flexpen) lisinopril 20 mg tablet 20 mg PO BID 10/05/21 10/28/21 History multivitamin 1 tab PO DAILY 10/05/21 10/28/21 History nitroglycerin 0.4 mg sublingual 0.4 mg sublingual Q5M PRN Chest 10/05/21 10/28/21 History tablet Pain isosorbide mononitrate 60 mg 30 mg PO DAILY 10/13/21 10/28/21 History tablet,extended release 24 hr ranolazine 500 mg tablet,extended 500 mg PO BID #60 tabs 10/13/21 10/28/21 Rx release,12 hr Juice Plus Tabs 6 tab PO QAM 10/28/21 10/28/21 History cholecalciferol (vitamin D3) 125 125 mcg PO DAILY 10/28/21 10/28/21 History mcg (5,000 unit) tablet (Vitamin D3) cranberry 400 mg capsule 400 mg PO DAILY 10/28/21 10/28/21 History d-mannose 500 mg capsule 1,000 mg PO DAILY 10/28/21 10/28/21 History lactobacillus combination no.4 3 0 mmu cells PO DAILY 10/28/21 10/28/21 History billion cell capsule (Probiotic) metformin 1,000 mg tablet 500 mg PO BID 10/28/21 10/28/21 History omega-3 fatty acids 1,000 mg 2,000 mg PO DAILY 10/28/21 10/28/21 History capsule Patient History Medical History Hypercholesterolemia Hypertension Myocardial infarct Type 2 diabetes mellitus Surgical History Hx of CABG with left heart cath Family History Father Heart disease Social History Smoking Status: Never smoker Hx Alcohol Use: No Hx Substance Use: No Preferred Language: Slovenian Communication Ability: Effective 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 Beliefs That Will Affect Care: None marital status: Current Living Situation: Spouse How many Children do You have: 8 Feels Safe at Home: Yes Assistive Devices: Cane and Walker Review of Systems Review of Systems: All systems reviewed & are unremarkable except as noted in HPI & below Physical Exam Constitutional: well developed; no acute distress Eyes: no scleral abnormality and no corneal abnormality ENMT: Mouth: + dry oral mucous membranes (slightly dry); no oral mucosal abnormality Neck: normal visual inspection and trachea midline Respiratory: normal respiratory effort Auscultation: lungs clear to auscultation bilaterally Cardiovascular: Rate/Rhythm: regular rate Heart Sounds: normal S1 and nor mal S2 Extremities: no edema Musculoskeletal: Extremities: no cyanosis and no clubbing Skin: + turgor decreased; no lesions Neurologic: Motor/Sensory: no tremor and no asterixis Psychiatric: Orientation: alert and oriented x 3 Results & Data ([facility]) Vital Signs (Past 12 Hours) Vital Signs Temp Pulse Resp BP Pulse Ox O2 Del Method 10/31/21 11:00 36.6 C 87 20 130/69 97 10/31/21 10:29 Room Air 08/28/22 08:00 36.5 C 74 18 142/73 H 97 10/31/21 02:52 36.3 C L 74 17 138/77 96 Room Air Laboratory Results Laboratory Results - last 24 hr 10/30/21 10/30/21 10/30/21 12:45 16:48 20:38 Sodium 119 L* Potassium 4.1 Chloride 84 L Carbon Dioxide 26 Anion Gap 9 BUN 31 H Creatinine 1.89 H Est Cr Clr Drug Dosing 28.6 Est GFR ( Amer) 36.7 Est GFR (Non-Af Amer) 31.6 BUN/Creatinine Ratio 16.4 Glucose 144 H POC Glucose 99 98 Osmolality Calcium 9.5 10/30/21 10/31/21 10/31/21 20:50 02:44 05:27 Sodium 117 L* 120 L 120 L Potassium 4.5 3.8 4.3 Chloride 84 L 85 L 87 L Carbon Dioxide 29 28 27 Anion Gap 4 7 6 BUN 31 H 28 H 27 H Creatinine 1.87 H 1.70 H 1.65 H Est Cr Clr Drug Dosing 28.9 31.8 32.7 Est GFR ( Amer) 37.2 41.7 43.2 Est GFR (Non-Af Amer) 32.1 36.0 37.3 BUN/Creatinine Ratio 16.6 16.5 16.4 Glucose 94 101 H 101 H POC Glucose Osmolality Calcium 9.5 9.5 9.6 10/31/21 10/31/21 10/31/21 05:28 07:35 07:56 Sodium 121 L Potassium 4.2 Chloride 86 L Carbon Dioxide 27 Anion Gap 8 BUN 27 H Creatinine 1.68 H Est Cr Clr Drug Dosing 32.1 Est GFR ( Amer) 42.3 Est GFR (Non-Af Amer) 36.5 BUN/Creatinine Ratio 16.1 Glucose 97 POC Glucose 111 H Osmolality 260 L Calcium 9.6 10/31/21 11:29 Sodium Potassium Chloride Carbon Dioxide Anion Gap BUN Creatinine Est Cr Clr Drug Dosing Est GFR ( Amer) Est GFR (Non-Af Amer) BUN/Creatinine Ratio Glucose POC Glucose 120 H Osmolality Calcium PG Care Time/CCT Total # of Minutes Spent Total Time Spent with Patient: Total time spent is greater than 50% in coordination of care (as documented) at patient's floor/unit and/or counseling patient: Coding Level of Care Code 07325 Inpt Consult Level 4 Diagnoses Hyponatremia E87.1 Hypertension I10 CAD (coronary artery disease) I25.10
[2021-10-31 13:24] LABS: BUN Creatinine Ratio 14.5 (10-20); Calcium 9.4 mg/dl (8.5-10.1); Creatinine Clr Calc Pharmacy 32.7 ml/min; Est GFR (African American) 43.2 ml/min; Est GFR (Non-African American) 37.3 ml/min; Potassium 4.3 mmol/L (3.5-5.1)
[2021-10-31] MEDS ORDERED: SODIUM CHLORIDE 3 % 150 ML IV ONE (14:05)
[2021-10-31 17:47] LABS: BUN Creatinine Ratio 15.3 (10-20); Calcium 9.5 mg/dl (8.5-10.1); Creatinine Clr Calc Pharmacy 33.1 ml/min; Est GFR (African American) 43.9 ml/min; Est GFR (Non-African American) 37.8 ml/min; Potassium 4.2 mmol/L (3.5-5.1)
--- NOTE | 2021-10-31 18:06 | Hospitalist Progress Note ---
Date of Service October 31, 2021 Assessment & Plan (1) Acute hyponatremia: Plan: Acute severe euvolemic hypotonic hyponatremia - 86yo male with history of CAD, HTN, HLP and DM presenting with two weeks of progressive weakness, fatigue and functional decline. cognitive impairment and imbalance noted by daughter. No seizure. Found to be acutely hyponatremic with Zu=305. Last laboratory value on 09/02/21 with Jb=540. Serum osmolality is low at 260 and urine low at 225 suggesting is attempting to correct. Patient is on HCTZ which can be contributing to hyponatremia. 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 No chest pain presently. He follows with Cardiology. Recently started on Ranexa 500mg po BID for persistent exertional symptoms - -Continue ASA 81mg po daily -Continue Atorvastatin 40mg po daily -Continue Isosorbide mononitrate -Continue Lisinopril -Continue Ranolazine (3) Type 2 diabetes mellitus: Plan: Chronic. Blood sugar well controlled now at 114. Patient does report he has occasional low blood sugars. He is on Metformin as well as Novolog -Check HgbA1C in AM -ISS -Lantus 5u BID -Goal blood sugar 100 - 140 (4) Hypertension: Plan: Blood pressure mildly elevated in the ER at 150/85 -Hold HCTZ lisinopril -Continue, Isosorbide (5) Hypercholesterolemia: Plan: Code - DNR/DNI Son in room updated POC - Daughter - Asya - [phone] Admission and Anticipated Discharge Date Admission Date: October 28, 2021 Subjective pt is feeling ok has no distress Review of Systems Review of Systems: Mild distress and fatigue no headache, no visual changes no speech or swallowing issues no chest pain, pressure or palpitations no shortness of breath, cough or wheezes no abdominal pain, nausea or vomiting, diarrhea or constipation no dysuria, hematuria or frequency no focal joint pain or swelling no back pain, CVA tenderness or radicular pain no bruising, bleeding or rashes no focal signs of weakness or numbness or altered sensation no complaints of anxiety or depression.. Physical Exam Physical Exam: The patient appeared well nourished and normally developed. Vital signs as documented. Head exam is normocephalic atraumatic Neck is without JVD, thyromegaly, or carotid bruits. Lungs are clear to auscultation, no focal loss of breath sounds Cardiac exam, Rhythm is regular.. No murmurs, rubs or gallops. Abdominal exam reveals normal bowel sounds, soft non tender, no masses Extremities are nonedematous and both pedal pulses are present Neurologic exam is alert and oriented, no focal loss of strength or sensation Skin is without bruises or rashes Psychologically is without concerns for anxiety or depression.. Results & Data Results & Data ([facility]) Vital Signs (Past 12 Hours) Vital Signs Temp Pulse Resp BP Pulse Ox O2 Del Method 10/31/21 16:00 98.2 F 77 20 135/66 97 10/31/21 11:00 97.9 F 87 20 130/69 97 10/31/21 10:29 Room Air 10/31/21 08:00 97.7 F 74 18 142/73 H 97 PG Care Time/CCT Total # of Minutes Spent Total Time Spent with Patient: Total time spent is greater than 50% in coordination of care (as documented) at patient's floor/unit and/or counseling patient: Coding Level of Care Code 13707 Subseq Hosp Care Lvl 2 Diagnoses Acute hyponatremia E87.1 CAD (coronary artery disease) I25.10 Type 2 diabetes mellitus E11.9 Hypertension I10 Hypercholesterolemia E78.00
[2021-11-01 07:18] LABS: BUN Creatinine Ratio 14.9 (10-20); Calcium 9.6 mg/dl (8.5-10.1); Creatinine Clr Calc Pharmacy 38.3 ml/min; Est GFR (African American) 52.3 ml/min; Est GFR (Non-African American) 45.1 ml/min; Potassium 4.2 mmol/L (3.5-5.1)
[2021-11-01] MEDS: ISOSORBIDE MONO EXTENDED REL 30 MG TABCR PO SCH (08:08)
[2021-11-01] MEDS: RANOLAZINE 500 MG ER TAB PO SCH ×2 (08:09→20:22)
[2021-11-01] MEDS: INSULIN ASPART PER UNIT SC SCH ×4 (08:09→20:38)
[2021-11-01] MEDS: ASPIRIN 81 MG ECTAB PO SCH (08:09)
[2021-11-01] MEDS: ENOXAPARIN INJ 40 MG/0.4 ML SYR SQ SCH (08:09)
[2021-11-01] MEDS: LANTUS PER UNIT CHARGE SQ SCH ×2 (08:10→20:38)
[2021-11-01] MEDS ORDERED: STAT IV STA (08:23)
[2021-11-01] MEDS ORDERED: SODIUM CHLORIDE 3 % 150 ML IV ONE (08:23)
--- NOTE | 2021-11-01 10:14 | Nephrology Progress Note ---
Date of Service November 01, 2021 Assessment & Plan (1) Hyponatremia: Plan: Improving with treatment. Remains euvolemic on exam. Additional NaCl provided this AM. Repeat urine studies requested later today. Maintain 1.2 L daily fluid restriction. If serum sodium continues to improve tomorrow, anticipate discharge home. (2) Hypertension: Plan: HCTZ discontinued. I would avoid use of thiazides in the future and favor loop diuretic use as needed. BP thankfully has been acceptable. (3) CAD (coronary artery disease): Plan: No active symptoms. I spoke to Dr. Ley this AM. Close follow up with cardiology will be arranged at discharge. Admission and Anticipated Discharge Date Admission Date: October 28, 2021 Subjective No acute events overnight. Mr. Alvarez feels well this AM. Appetite is good. Denies any fluid retention or edema. The patient was seen and evaluated with Dr. Aviles this AM. Review of Systems Review of Systems: All systems reviewed & are unremarkable except as noted in HPI & below Physical Exam Constitutional: well developed; no acute distress Eyes: no scleral abnormality and no corneal abnormality ENMT: Mouth: no oral mucosal abnormality and oral mucous membranes not dry Neck: normal visual inspection and trachea midline Respiratory: normal respiratory effort Auscultation: lungs clear to auscultation bilaterally and + rales (few right base) Cardiovascular: Rate/Rhythm: regular rate Heart Sounds: normal S1 and normal S2 Extremities: no edema Musculoskeletal: Extremities: no cyanosis and no clubbing Skin: + turgor decreased; no lesions Neurologic: Motor/Sensory: no tremor and no asterixis Psychiatric: Orientation: alert and oriented x 3 Results & Data ([facility]) Vital Signs (Past 12 Hours) Vital Signs Temp Pulse Pulse Resp BP Pulse Ox O2 Del Method 11/01/21 08:00 76 11/01/21 07:16 36.3 C L 86 20 135/78 95 Room Air 11/01/21 03:36 36.6 C 79 20 161/86 H 93 Room Air 10/31/21 23:45 36.6 C 67 18 114/65 94 Room Air 10/31/21 22:58 76 Laboratory Results Laboratory Results - last 24 hr 10/31/21 10/31/21 10/31/21 05:28 11:29 12:20 Sodium Potassium Chloride Carbon Dioxide Anion Gap BUN Creatinine Est Cr Clr Drug Dosing Est GFR ( Amer) Est GFR (Non-Af Amer) BUN/Creatinine Ratio Glucose POC Glucose 120 H Calcium Urine Osmolality 225 L Ur Random Sodium 10/31/21 10/31/21 10/31/21 12:20 12:40 16:45 Sodium 122 L Potassium 4.3 Chloride 88 L Carbon Dioxide 27 Anion Gap 7 BUN 24 H Creatinine 1.65 H Est Cr Clr Drug Dosing 32.7 Est GFR ( Amer) 43.2 Est GFR (Non-Af Amer) 37.3 BUN/Creatinine Ratio 14.5 Glucose 163 H POC Glucose 172 H Calcium 9.4 Urine Osmolality Ur Random Sodium 20 10/31/21 10/31/21 10/31/21 17:14 17:14 20:03 Sodium 126 L 126 L Potassium 4.2 Chloride 92 L Carbon Dioxide 28 Anion Gap 6 BUN 25 H Creatinine 1.63 H Est Cr Clr Drug Dosing 33.1 Est GFR ( Amer) 43.9 Est GFR (Non-Af Amer) 37.8 BUN/Creatinine Ratio 15.3 Glucose 125 H POC Glucose 109 H Calcium 9.5 Urine Osmolality Ur Random Sodium 11/01/21 11/01/21 06:18 07:14 Sodium 129 L Potassium 4.2 Chloride 94 L Carbon Dioxide 29 Anion Gap 6 BUN 21 Creatinine 1.41 H Est Cr Clr Drug Dosing 38.3 Est GFR ( Amer) 52.3 Est GFR (Non-Af Amer) 45.1 BUN/Creatinine Ratio 14.9 Glucose 120 H POC Glucose 133 H Calcium 9.6 Urine Osmolality Ur Random Sodium PG Care Time/CCT Total # of Minutes Spent Total Time Spent with Patient: Total time spent is greater than 50% in coordination of care (as documented) at patient's floor/unit and/or counseling patient: Coding Level of Care Code 96163 Subseq Hosp Care Lvl 3 Diagnoses Hyponatremia E87.1 Hypertension I10 CAD (coronary artery disease) I25.10
--- NOTE | 2021-11-01 17:48 | Hospitalist Progress Note ---
Date of Service November 01, 2021 Assessment & Plan (1) Acute hyponatremia: Plan: Acute severe euvolemic hypotonic hyponatremia - 86yo male with history of CAD, HTN, HLP and DM presenting with two weeks of progressive weakness, fatigue and functional decline. cognitive impairment and imbalance noted by daughter. No seizure. Found to be acutely hyponatremic with Po=842. Last laboratory value on 09/02/21 with Rs=456. Serum osmolality is low at 260 and urine low at 225 suggesting is attempting to correct. Patient is on HCTZ which can be contributing to hyponatremia. 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 No chest pain presently. He follows with Cardiology. Recently started on Ranexa 500mg po BID for persistent exertional symptoms - -Continue ASA 81mg po daily -Continue Atorvastatin 40mg po daily -Continue Isosorbide mononitrate -Continue Lisinopril -Continue Ranolazine (3) Type 2 diabetes mellitus: Plan: Chronic. Blood sugar well controlled now at 114. Patient does report he has occasional low blood sugars. He is on Metformin as well as Novolog -Check HgbA1C in AM -ISS -Lantus 5u BID -Goal blood sugar 100 - 140 (4) Hypertension: Plan: Blood pressure mildly elevated in the ER at 150/85 -Hold HCTZ lisinopril -Continue, Isosorbide (5) Hypercholesterolemia: Plan: Code - DNR/DNI Son in room updated POC - Daughter - Asya - [phone] Admission and Anticipated Discharge Date Admission Date: October 28, 2021 Subjective pt is pleasant and conversant , sodium did rise, pts son at the bedside Review of Systems Review of Systems: Mild distress and fatigue no headache, no visual changes no speech or swallowing issues no chest pain, pressure or palpitations no shortness of breath, cough or wheezes no abdominal pain, nausea or vomiting, diarrhea or constipation no dysuria, hematuria or frequency no focal joint pain or swelling no back pain, CVA tenderness or radicular pain no bruising, bleeding or rashes no focal signs of weakness or numbness or altered sensation no complaints of anxiety or depression.. Physical Exam Physical Exam: The patient appeared well nourished and normally developed. Vital signs as documented. Head exam is normocephalic atraumatic Neck is without JVD, thyromegaly, or carotid bruits. Lungs are clear to auscultation, no focal loss of breath sounds Cardiac exam, Rhythm is regular.. No murmurs, rubs or gallops. Abdominal exam reveals normal bowel sounds, soft non tender, no masses Extremities are nonedematous and both pedal pulses are present Neurologic exam is alert and oriented, no focal loss of strength or sensation Skin is without bruises or rashes Psychologically is without concerns for anxiety or depression.. Results & Data Results & Data ([facility]) Vital Signs (Past 12 Hours) Vital Signs Temp Pulse Pulse Resp BP Pulse Ox O2 Del Method 11/01/21 15:11 98.1 F 78 19 158/90 H 94 Room Air 11/01/21 11:11 97.7 F 79 20 142/82 H 96 Room Air 11/01/21 08:00 76 11/01/21 07:16 97.3 F L 86 20 135/78 95 Room Air PG Care Time/CCT Total # of Minutes Spent Total Time Spent with Patient: Total time spent is greater than 50% in coordination of care (as documented) at patient's floor/unit and/or counseling patient: Coding Level of Care Code 06407 Subseq Hosp Care Lvl 2 Diagnoses Acute hyponatremia E87.1 CAD (coronary artery disease) I25.10 Type 2 diabetes mellitus E11.9 Hypertension I10 Hypercholesterolemia E78.00
[2021-11-01] MEDS ORDERED: SODIUM CHLORIDE 1 GM TABLET PO SCH (21:00)
[2021-11-02 08:28] LABS: BUN Creatinine Ratio 12.7 (10-20); Calcium 9.6 mg/dl (8.5-10.1); Creatinine Clr Calc Pharmacy 40.3 ml/min; Est GFR (African American) 55.6 ml/min; Potassium 4.1 mmol/L (3.5-5.1)
[2021-11-02] MEDS: INSULIN ASPART PER UNIT SC SCH ×3 (09:01→17:32)
[2021-11-02] MEDS: LANTUS PER UNIT CHARGE SQ SCH (09:02)
[2021-11-02] MEDS: ASPIRIN 81 MG ECTAB PO SCH (09:09)
[2021-11-02] MEDS: ISOSORBIDE MONO EXTENDED REL 30 MG TABCR PO SCH (09:10)
[2021-11-02] MEDS: ENOXAPARIN INJ 40 MG/0.4 ML SYR SQ SCH (09:10)
[2021-11-02] MEDS: RANOLAZINE 500 MG ER TAB PO SCH (09:10)
--- NOTE | 2021-11-02 10:00 | Nephrology Progress Note ---
Date of Service November 02, 2021 Assessment & Plan (1) Hyponatremia: Plan: Noted improvement. Remains euvolemic on exam. Hold additional NaCl. Maintain 1.2 L daily fluid restriction. Monitor BP. Avoid thiazide diuretics. For signs of elevated BP or fluid retention, may consider addition of loop diuretic in the future. No additional changes at this time. Plan of care discussed with Dr. Aviles. Close outpatient follow up in the nephrology clinic requested. Will coordinate nephrology office visit with follow up with Dr. Ley (if able). Check a metabolic profile within 1 week of hospital discharge. (2) Hypertension: Plan: HCTZ discontinued. I would avoid use of thiazides in the future and favor loop diuretic use as needed. BP remains acceptable. (3) CAD (coronary artery disease): Plan: Close follow up with cardiology will be arranged at discharge. Admission and Anticipated Discharge Date Admission Date: October 28, 2021 Subjective No acute events overnight. Mr. Alvarez feels well this AM. He was evaluated with his son at the bedside. The patient was out of bed with his son walking laps in his room using a walker. He hopes to be discharged home soon. Appetite is good. Overall improvement noted. No fluid retention or edema reported. Review of Systems Review of Systems: All systems reviewed & are unremarkable except as noted in HPI & below Physical Exam Constitutional: well developed; no acute distress Eyes: no scleral abnormality and no corneal abnormality ENMT: Mouth: no oral mucosal abnormality and oral mucous membranes not dry Neck: normal visual inspection and trachea midline Respiratory: normal respiratory effort Auscultation: lungs clear to au scultation bilaterally and + rales (few right base) Cardiovascular: Rate/Rhythm: regular rate Heart Sounds: normal S1 and normal S2 Extremities: no edema Musculoskeletal: Extremities: no cyanosis and no clubbing Skin: + turgor decreased; no lesions Neurologic: Motor/Sensory: no tremor and no asterixis Psychiatric: Orientation: alert and oriented x 3 Results & Data ([facility]) Vital Signs (Past 12 Hours) Vital Signs Temp Pulse Pulse Resp BP Pulse Ox Pulse Ox 11/02/21 07:48 36.5 C 72 20 175/85 H 95 11/02/21 03:32 36.8 C 75 16 135/84 95 11/02/21 02:00 96 11/01/21 23:45 36.6 C 74 16 139/83 95 08/29/22 22:15 93 H O2 Del Method O2 Del Method 11/02/21 07:48 Room Air 11/02/21 03:32 Room Air 11/02/21 02:00 Room Air 11/01/21 23:45 Room Air 11/01/21 22:15 Laboratory Results Laboratory Results - last 24 hr 11/01/21 11/01/21 11/01/21 10:28 11:08 16:15 Sodium Potassium Chloride Carbon Dioxide Anion Gap BUN Creatinine Est Cr Clr Drug Dosing Est GFR ( Amer) Est GFR (Non-Af Amer) BUN/Creatinine Ratio Glucose POC Glucose 126 H 120 H Calcium Urine Osmolality 283 L 11/01/21 11/02/21 11/02/21 20:32 02:12 06:54 Sodium 132 L Potassium 4.1 Chloride 96 L Carbon Dioxide 28 Anion Gap 8 BUN 17 Creatinine 1.34 Est Cr Clr Drug Dosing 40.3 Est GFR ( Amer) 55.6 Est GFR (Non-Af Amer) 48.0 BUN/Creatinine Ratio 12.7 Glucose 118 H POC Glucose 144 H 109 H Calcium 9.6 Urine Osmolality 11/02/21 07:08 Sodium Potassium Chloride Carbon Dioxide Anion Gap BUN Creatinine Est Cr Clr Drug Dosing Est GFR ( Amer) Est GFR (Non-Af Amer) BUN/Creatinine Ratio Glucose POC Glucose 112 H Calcium Urine Osmolality PG Care Time/CCT Total # of Minutes Spent Total Time Spent with Patient: Total time spent is greater than 50% in coordination of care (as documented) at patient's floor/unit and/or counseling patient: Coding Level of Care Code 73827 Subseq Hosp Care Lvl 3 Diagnoses Hyponatremia E87.1 Hypertension I10 CAD (coronary artery disease) I25.10
--- NOTE | 2021-11-02 17:23 | Discharge Summary ---
Date of Service November 02, 2021 Admission HPI Per Admitting Provider Jun Alvarez is a pleasant 86yo male with history of HTN, HLP, DM and CAD s/p CABG x 4v (2000 in [place]. HERNANDEZ to LAD, SVG to PDA, SVG to OM1 and SVG to diagonal). Patient has been evaluated for ongoing fatigue as well as exertional dyspnea. He was last seen by Cardiology with these complaints on 10/13/21 and was started on Ranexa 500mg po BID as anti-anginal. Overall he has had progressive generalized weakness and fatigue over the last few months. However, his symptoms have rapidly progressed over the last 2 weeks. His daughter has also noted some cognitive slowing as well as imbalance. No seizures. Patient had routine bloodwork performed today in preparation for an appointment with his PCP. He was found to be severely hyponatremic with Ro=844. He was notified of his results and told to come to the ER for additional workup and treatment. Patient is with his daughter. Overall states he is doing well. He takes his medication as prescribed. He has had some constipation lately so has been t aking Metamucil and MOM as well as having a Fleets enema. He reports that he has poor appetite overall. He drinks 6-8 glasses of water daily. Takes HCTZ as well. No additional complaints at this time. Principal Diagnosis severe hyponatremia symptomatic hyponatremia Discharge Exam The patient appeared stable Vital signs as documented. Lungs are clear to auscultation and appear unlabored Cardiac exam, Rhythm is regular.. No murmurs, rubs or gallops. Abdominal exam reveals normal bowel sounds, soft non tender, no masses Extremities are nonedematous and both pedal pulses are normal. Neurologic exam is alert and oriented, no focal loss of strength or sensation Skin is without bruises or rashes Psychologically is without concerns for anxiety or depression. Discharge Data Allergies Allergy/AdvReac Type Severity Reaction Status Date / Time No Known Allergies Allergy Unverified 10/28/21 22:46 Consultations 10/28/21 20:10 ED Decision to Admit Stat 10/31/21 07:19 Consult Nephrology Routine Hospital Course (1) Acute hyponatremia: Acute severe euvolemic hypotonic hyponatremia - 86yo male with history of CAD, HTN, HLP and DM presenting with two weeks of progressive weakness, fatigue and functional decline. cognitive impairment and imbalance noted by daughter. No seizure. Found to be acutely hyponatremic with Bd=822. Last laboratory value on 09/02/21 with Eu=600. Patient did have improvement but required multiple doses of 3% saline and oral sodium. Patient be discharged home on no additional salt but will have blood work checked in 3 days as an outpatient follow-up appointment with the family physician. This time hydrochlorothiazide is stopped lisinopril is reduced but additional lisinopril may be required for blood pressure control -Free H2O restriction told patient to keep around 2000 a day we will have blood work checked this week -PT/OT evaluation -patient ambulated well and will be able to go home (2) CAD (coronary artery disease): Patient with CAD s/p CABG x 4v in 2000. No chest pain presently. He follows with Cardiology. Recently started on Ranexa 500mg po BID for persistent exertional symptoms - -Continue ASA 81mg po daily -Continue Atorvastatin 40mg po daily -Continue Isosorbide mononitrate -Continue Lisinopril -Continue Ranolazine (3) Type 2 diabetes mellitus: Chronic. Blood sugar well controlled now at 114. Patient does report he has occasional low blood sugars. He is on Metformin as well as glargine -Return outpatient regiment (4) Hypertension: Blood pressure mildly elevated in the ER at 150/85 -Hold HCTZ restarted lisinopril but reduce dose to elevated blood pressure -Continue, Isosorbide (5) Hypercholesterolemia: Code - DNR/DNI Son in room updated POC - Gee Sky - [phone] Total Time Total Time Spent Total Time Spent (In Minutes): It required greater than 30 minutes to prepare this patient for discharge Discharge Plan Discharge Items Patient Disposition: Home - Self-Care Reason For Visit: HYPONATREMIA Discharge Diagnosis: low sodium encephalopahty seconday to low sodium Activity: Resume your previous activity Non-emergency contact: Primary Care Provider Call non-emergency contact if: your symptoms worsen Follow-up/Referrals: Aramis Medel D.O. [Primary Care Provider] - 11/05/21 9:00 am Diet: Regular Ambulatory Orders: Basic Metabolic Panel (Routine) Timeframe: 3 Days Location: Determined by Patient Ordered By: Jerzy Aviles Basic Metabolic Panel (Routine) Timeframe: 3 Days Location: Determined by Patient Ordered By: Jerzy Garcia Attending Provider Instructions: please keep your total daily intake to 2 liters a day and try to drink liquids other than plain water please follow up with blood work at your family doctor Pending Studies at Discharge: No Stand-Alone Forms: My [facility] 2C2P, Smoking Cessation Medications and DC Order Prescriptions: Continued ranolazine 500 mg tablet extended release 12 hr 500 mg PO BID Qty: 60 5RF atorvastatin 40 mg tablet 40 mg PO DAILY Novolin N Flexpen 100 unit/mL (3 mL) insulin pen 20 unit subcut BID aspirin 81 mg tablet,delayed release (DR/EC) 81 mg PO DAILY multivitamin Tablet 1 tab PO DAILY ascorbic acid (vitamin C) 100 mg tablet 100 mg PO DAILY nitroglycerin 0.4 mg tablet, sublingual 0.4 mg sublingual Q5M PRN (Reason: Chest Pain) Rx Instructions: do not exceed 3 doses per episode isosorbide mononitrate 60 mg tablet extended release 24 hr 30 mg PO DAILY omega-3 fatty acids 1,000 mg Capsule 2,000 mg PO DAILY Rx Instructions: omega 3, 5, 7, 9 metformin 1,000 mg tablet 500 mg PO BID cranberry 400 mg Capsule 400 mg PO DAILY Rx Instructions: administer with a meal cholecalciferol (vitamin D3) [Vitamin D3] 125 mcg (5,000 unit) Tablet 125 mcg PO DAILY Probiotic 3 billion cell Capsule 0 mmu cells PO DAILY Rx Instructions: administer with a meal d-mannose 500 mg Capsule 1,000 mg PO DAILY Juice Plus Tabs 6 tab PO QAM Changed lisinopril 20 mg tablet 20 mg PO DAILY Qty: 30 4RF Discontinued hydrochlorothiazide 12.5 mg tablet 12.5 mg PO DAILY Discharge Orders: Discharge Order (Routine); Ordered 11/02/21 Ordered By: Jerzy Baca/Other Patient Handouts: Managing Type 2 Diabetes Admission Data Admit Date/Time: 10/28/21 20:38 Attending Provider: Jerzy Aviles Admit Provider: Silvia Kirby Primary Care Provider: Aramis Medel Other Providers: Silvia Kirby ; Jaret Vargas Coding Level of Care Code D/C DAY MANAGEMENT >30 MINS Diagnoses Acute hyponatremia E87.1 CAD (coronary artery disease) I25.10 Type 2 diabetes mellitus E11.9 Hypertension I10 Hypercholesterolemia E78.00
--- NOTE | 2021-11-23 13:58 | Coding Query ---
To promote full compliance with coding requirements relating to patient care, provider participation is requested in all cases of commissioner of relocation services uncertainty. Please assist us with the question(s) below: Coding Question(s): The diagnosis below was documented in the Discharge Summary, then subsequently fell off all further documentation. Please indicate if it is still a possible diagnosis or ruled out. Physician's Response(s): ENCEPHALOPATHY DUE TO LOW SODIUM (documented on the Discharge Summary) ( x ) Diagnosed and POA ( ) Diagnosed and not POA ( ) Ruled out ( ) Other (please specify) MTDD
== END 2021-11-02 18:04 | disposition home or self-care (01) | DRG 644 ==
LOC: ED 17:53 → SUATTDRO 20:38 → 2S 20:38